=== PATIENT | female | born 1950 | race Caucasian/White ===

== ENCOUNTER 2017-02-25 13:45 | Inpatient (IN) | payer OTHER ==
[~2017-02-25] VITALS: Ht 165.1 cm; Wt 62.4 kg
[2017-02-25 14:22] LABS: HEMATOCRIT 35.3 % (34.6-47.8); HEMOGLOBIN 11.6 g/dL (11.7-16.4); WHITE BLOOD COUNT 13.7 x10^3/uL (3.4-10)
[2017-02-25] MEDS ORDERED: SODIUM CHLORIDE FLUSH 10ML SYR IVF ONE (14:30)
[2017-02-25 14:31] LABS: ASPARTATE AMINO TRANSFERASE 11 U/L (15-37); BLOOD UREA NITROGEN 23 mg/dL (7-18)
[2017-02-25 14:36] LABS: IS PT STATUS REG ER OR PRE ER? YES
[2017-02-25] MEDS ORDERED: SODIUM CHLORIDE 0.9% 1,000ML IVBOLUS ONE (15:00)
[2017-02-25] MEDS ORDERED: OMNIPAQUE 350 MG/ML, 100ML BOTTLE ONE (16:35)
[2017-02-25] MEDS ORDERED: CEFTRIAXONE PMX 1GM/50ML 50 ML ONE (18:46)
[2017-02-25] MEDS ORDERED: CEFTRIAXONE PMX 1GM/50ML 50 ML IVPB ONE (19:00)
[2017-02-25] MEDS ORDERED: PROMETHAZINE 25 MG/ML, 1ML IM PRN (20:00)
[2017-02-25] MEDS ORDERED: ONDANSETRON 2MG/ML, 2ML IVPush PRN (20:00)
[2017-02-25] MEDS ORDERED: morphine SULFATE 10 MG/ML, 1ML IVPush PRN (20:00)
[2017-02-25] MEDS ORDERED: DOCUSATE 100 MG CAPSULE PO PRN (20:00)
[2017-02-25] MEDS ORDERED: POLYETHYLENE GLYCOL 17 GM PACKET PO PRN (20:00)
[2017-02-25] MEDS ORDERED: ACETAMINOPHEN 325 MG TABLET PO PRN (20:00)
[2017-02-25] MEDS ORDERED: CEFTRIAXONE PMX 1GM/50ML 50 ML IV SCH (20:00)
[2017-02-25] MEDS ORDERED: METRONIDAZOLE PMX 500MG/100ML 100 ML ONE (20:18)
[2017-02-25] MEDS: SODIUM CHLORIDE 0.9% 1,000 ML IV SCH (20:24)
[2017-02-25] MEDS: METRONIDAZOLE PMX 500MG/100ML 100 ML IV SCH (20:25)
[2017-02-25 21:00] VITALS: BP 102/66
[2017-02-25 23:08] VITALS: BP 102/66
[2017-02-25] MEDS: HYDROcodone/APAP 5/325 TABLET PO PRN (23:33)
[2017-02-26 01:40] VITALS: BP 120/75
[2017-02-26] MEDS ORDERED: HYDR-3240 PO (03:25)
[2017-02-26] MEDS: METRONIDAZOLE PMX 500MG/100ML 100 ML IV SCH ×3 (04:09→20:38)
[2017-02-26 04:54] LABS: HEMOGLOBIN 9.3 g/dL (11.7-16.4); WHITE BLOOD COUNT 9.3 x10^3/uL (3.4-10)
[2017-02-26 05:01] LABS: ASPARTATE AMINO TRANSFERASE 5 U/L (15-37); BLOOD UREA NITROGEN 18 mg/dL (7-18)
[2017-02-26] MEDS ORDERED: LIDOCAINE 1%, 20ML ONE ×2 (07:40→14:02)
[2017-02-26] MEDS ORDERED: MIDAZOLAM 1 MG/ML, 5ML ONE ×2 (07:57→14:00)
[2017-02-26] MEDS ORDERED: FENTANYL PF 100 MCG/2ML ONE ×4 (07:57→14:00)
[2017-02-26] MEDS ORDERED: NALOXONE 1 MG/ML, 2ML ONE (07:57)
[2017-02-26] MEDS ORDERED: FLUMAZENIL 0.1 MG/1 ML, 5ML ONE (07:57)
[2017-02-26] MEDS ORDERED: MIDAZOLAM 1 MG/ML, 2ML ONE (08:00)
[2017-02-26] MEDS ORDERED: PROPOFOL 10 MG/ML, 20ML ONE (08:01)
[2017-02-26] MEDS ORDERED: ONDANSETRON 2MG/ML, 2ML ONE (08:01)
[2017-02-26] MEDS ORDERED: DEXAMETHASONE 4 MG/ML, 1ML ONE ×2 (08:01)
[2017-02-26 08:30] VITALS: BP 113/65
[2017-02-26] MEDS ORDERED: hydrALAzine 20 MG/ML, 1ML IV PRN (08:30)
[2017-02-26] MEDS ORDERED: OXYcodone 5 MG/5 ML ORAL.SOL UDC PO PRN (08:30)
[2017-02-26] MEDS ORDERED: LABETALOL 5MG/ML, 20ML IV PRN (08:30)
[2017-02-26] MEDS ORDERED: ACETAMINOPHEN 325 MG TABLET PO PRN (08:30)
[2017-02-26] MEDS ORDERED: FENTANYL PF 100 MCG/2ML IV PRN (08:30)
[2017-02-26] MEDS ORDERED: MEPERIDINE/PF 25MG/0.5ML IVPush PRN (08:30)
[2017-02-26] MEDS ORDERED: HYDROmorphone 1 MG/ML, 1ML IV PRN (08:30)
[2017-02-26] MEDS ORDERED: PROMETHAZINE 25 MG/ML, 1ML IV PRN (08:30)
[2017-02-26] MEDS ORDERED: ONDANSETRON 2MG/ML, 2ML IVPush PRN (08:30)
[2017-02-26] MEDS ORDERED: PHENYLEPHRINE 10 MG/ML ONE (08:42)
[2017-02-26] MEDS: SENNA/DOCUSATE TABLET PO SCH (09:00)
[2017-02-26 14:30] VITALS: BP 116/72
[2017-02-26] MEDS: HYDROcodone/APAP 5/325 TABLET PO PRN ×2 (15:22→20:14)
[2017-02-26] MEDS: SODIUM CHLORIDE 0.9% 1,000 ML IV SCH (18:37)
[2017-02-26 18:53] VITALS: BP 112/67
[2017-02-26] MEDS ORDERED: CEFTRIAXONE 1,000 MG in DEXTROSE 5% 50 ML IV SCH (20:00)
[2017-02-27 01:49] VITALS: BP 139/56
[2017-02-27] MEDS: METRONIDAZOLE PMX 500MG/100ML 100 ML IV SCH ×3 (04:13→20:44)
[2017-02-27 07:26] VITALS: BP 108/67
[2017-02-27] MEDS: SENNA/DOCUSATE TABLET PO SCH (10:38)
[2017-02-27 13:41] LABS: BLOOD UREA NITROGEN 19 mg/dL (7-18)
[2017-02-27 13:44] LABS: HEMATOCRIT 27.6 % (34.6-47.8); HEMOGLOBIN 8.6 g/dL (11.7-16.4); WHITE BLOOD COUNT 11.2 x10^3/uL (3.4-10)
[2017-02-27 13:52] VITALS: BP 122/73
[2017-02-27] MEDS: FLUCONAZOLE 200 MG/100 ML 100 ML IV SCH (14:21)
[2017-02-27] MEDS: CEFTAZIDIME PMX 2 GM/50ML 50 ML IV SCH ×2 (16:51→23:46)
[2017-02-27 19:00] VITALS: BP 117/74
[2017-02-27] MEDS ORDERED: morphine SULFATE 10 MG/ML, 1ML IVPush PRN (19:30)
[2017-02-27] MEDS ORDERED: POLYETHYLENE GLYCOL 17 GM PACKET PO PRN (19:30)
[2017-02-27] MEDS ORDERED: DOCUSATE 100 MG CAPSULE PO PRN (19:30)
[2017-02-27] MEDS ORDERED: PROMETHAZINE 25 MG/ML, 1ML IM PRN (19:30)
[2017-02-27] MEDS ORDERED: ONDANSETRON 2MG/ML, 2ML IVPush PRN (19:30)
[2017-02-27] MEDS: HYDROcodone/APAP 5/325 TABLET PO PRN (23:46)
[2017-02-28 03:44] VITALS: BP 125/81
[2017-02-28 04:49] LABS: HEMATOCRIT 26.7 % (34.6-47.8); HEMOGLOBIN 8.6 g/dL (11.7-16.4); WHITE BLOOD COUNT 9.2 x10^3/uL (3.4-10)
[2017-02-28] MEDS: METRONIDAZOLE PMX 500MG/100ML 100 ML IV SCH ×3 (04:54→21:49)
[2017-02-28 05:03] LABS: BLOOD UREA NITROGEN 19 mg/dL (7-18)
[2017-02-28 08:34] VITALS: BP 117/65
[2017-02-28] MEDS: SENNA/DOCUSATE TABLET PO SCH (08:43)
[2017-02-28] MEDS: CEFTAZIDIME PMX 2 GM/50ML 50 ML IV SCH ×2 (10:26→16:38)
[2017-02-28] MEDS ORDERED: POTASSIUM PHOSPHATE 22 MEQ in SODIUM CHLORIDE 0.9% 500 ML IV ONE (10:30)
[2017-02-28] MEDS: HYDROcodone/APAP 5/325 TABLET PO PRN ×2 (11:28→21:49)
[2017-02-28] MEDS: HEPARIN 5,000 UNITS/ML, 1ML SQ SCH ×2 (11:36→20:11)
[2017-02-28] MEDS: FLUCONAZOLE 200 MG/100 ML 100 ML IV SCH (14:04)
[2017-02-28 14:15] VITALS: BP 107/63
[2017-02-28] MEDS: D5%-0.9% NACL+KCL 20MEQ 1,000 ML IV SCH (16:38)
[2017-02-28 21:30] VITALS: BP 111/66
[2017-03-01 01:10] VITALS: BP 121/78
[2017-03-01] MEDS: CEFTAZIDIME PMX 2 GM/50ML 50 ML IV SCH ×3 (01:16→17:59)
[2017-03-01] MEDS: HEPARIN 5,000 UNITS/ML, 1ML SQ SCH ×3 (05:21→20:47)
[2017-03-01] MEDS: METRONIDAZOLE PMX 500MG/100ML 100 ML IV SCH ×3 (05:21→20:47)
[2017-03-01 05:25] LABS: HEMATOCRIT 26.8 % (34.6-47.8); HEMOGLOBIN 8.5 g/dL (11.7-16.4); WHITE BLOOD COUNT 6.7 x10^3/uL (3.4-10)
[2017-03-01 05:28] LABS: BLOOD UREA NITROGEN 10 mg/dL (7-18)
[2017-03-01 07:01] VITALS: BP 144/83
[2017-03-01] MEDS: SENNA/DOCUSATE TABLET PO SCH (07:56)
[2017-03-01] MEDS: HYDROcodone/APAP 5/325 TABLET PO PRN ×3 (07:57→20:47)
[2017-03-01] MEDS: D5%-0.9% NACL+KCL 20MEQ 1,000 ML IV SCH (09:29)
[2017-03-01 15:08] VITALS: BP 111/64
[2017-03-01] MEDS: FLUCONAZOLE 200 MG/100 ML 100 ML IV SCH (15:10)
[2017-03-01 18:54] VITALS: BP 119/72
[2017-03-02] MEDS: CEFTAZIDIME PMX 2 GM/50ML 50 ML IV SCH ×3 (01:13→17:22)
[2017-03-02 03:04] VITALS: BP 138/84
[2017-03-02] MEDS: HEPARIN 5,000 UNITS/ML, 1ML SQ SCH ×3 (05:12→20:20)
[2017-03-02] MEDS: METRONIDAZOLE PMX 500MG/100ML 100 ML IV SCH ×3 (05:13→21:46)
[2017-03-02 05:52] LABS: BLOOD UREA NITROGEN 6 mg/dL (7-18)
[2017-03-02 07:06] VITALS: BP 130/83
[2017-03-02] MEDS ORDERED: POTASSIUM PHOSPHATE 22 MEQ in SODIUM CHLORIDE 0.9% 500 ML IV ONE (08:30)
[2017-03-02] MEDS ORDERED: POTASSIUM PHOS 4.4 MEQ/ML IV ONE (08:30)
[2017-03-02] MEDS: HYDROcodone/APAP 5/325 TABLET PO PRN ×3 (09:01→23:05)
[2017-03-02] MEDS: SENNA/DOCUSATE TABLET PO SCH (09:01)
[2017-03-02] MEDS: FLUCONAZOLE 200 MG/100 ML 100 ML IV SCH ×2 (12:47→14:09)
[2017-03-02 14:07] VITALS: BP 127/82
[2017-03-02 20:47] VITALS: BP 127/80
[2017-03-03] MEDS: CEFTAZIDIME PMX 2 GM/50ML 50 ML IV SCH ×3 (01:19→16:22)
[2017-03-03 01:25] VITALS: BP 126/84
[2017-03-03] MEDS: HEPARIN 5,000 UNITS/ML, 1ML SQ SCH ×3 (05:15→19:33)
[2017-03-03] MEDS: METRONIDAZOLE PMX 500MG/100ML 100 ML IV SCH ×3 (05:15→19:33)
[2017-03-03 07:15] VITALS: BP 138/82
[2017-03-03] MEDS: SENNA/DOCUSATE TABLET PO SCH (08:34)
[2017-03-03] MEDS: HYDROcodone/APAP 5/325 TABLET PO PRN ×2 (10:21→19:33)
[2017-03-03] MEDS: FLUCONAZOLE 200 MG/100 ML 100 ML IV SCH (12:27)
[2017-03-03 15:16] VITALS: BP 132/84
[2017-03-03 19:18] VITALS: BP 143/85
[2017-03-04] MEDS: CEFTAZIDIME PMX 2 GM/50ML 50 ML IV SCH ×3 (01:57→16:39)
[2017-03-04 02:14] VITALS: BP 131/81
[2017-03-04] MEDS: METRONIDAZOLE PMX 500MG/100ML 100 ML IV SCH (04:49)
[2017-03-04] MEDS: HEPARIN 5,000 UNITS/ML, 1ML SQ SCH ×3 (04:49→19:55)
[2017-03-04] MEDS: ACETAMINOPHEN 325 MG TABLET PO PRN (04:51)
[2017-03-04 08:30] VITALS: BP 125/77
[2017-03-04] MEDS: SENNA/DOCUSATE TABLET PO SCH (09:00)
[2017-03-04] MEDS: FLUCONAZOLE 200 MG/100 ML 100 ML IV SCH (12:14)
[2017-03-04] MEDS: metroNIDAZOLE 500 MG TABLET PO SCH ×2 (13:19→19:54)
[2017-03-04] MEDS: FLUCONAZOLE 400 MG/200 ML 200 ML IV SCH (13:19)
[2017-03-04] MEDS: HYDROcodone/APAP 5/325 TABLET PO PRN ×3 (13:40→21:02)
[2017-03-04 14:07] VITALS: BP 126/86
[2017-03-04] MEDS ORDERED: POLYETHYLENE GLYCOL 17 GM PACKET NG ONE (15:30)
[2017-03-04 19:24] VITALS: BP 114/75
[2017-03-05] MEDS: CEFTAZIDIME PMX 2 GM/50ML 50 ML IV SCH ×2 (00:59→09:20)
[2017-03-05 01:03] VITALS: BP 136/83
[2017-03-05] MEDS: metroNIDAZOLE 500 MG TABLET PO SCH ×2 (04:15→15:55)
[2017-03-05] MEDS: HEPARIN 5,000 UNITS/ML, 1ML SQ SCH ×3 (04:16→21:22)
[2017-03-05 04:50] LABS: HEMATOCRIT 31.6 % (34.6-47.8); HEMOGLOBIN 9.9 g/dL (11.7-16.4); WHITE BLOOD COUNT 8.1 x10^3/uL (3.4-10)
[2017-03-05 04:51] LABS: BLOOD UREA NITROGEN 6 mg/dL (7-18)
[2017-03-05 04:54] LABS: ASPARTATE AMINO TRANSFERASE 7 U/L (15-37)
[2017-03-05 07:16] VITALS: BP 125/79
[2017-03-05] MEDS: SENNA/DOCUSATE TABLET PO SCH (09:20)
[2017-03-05] MEDS ORDERED: SODIUM PHOSPHATE 4 MEQ/ML IV SCH (12:00)
[2017-03-05] MEDS ORDERED: SODIUM PHOSPHATE 40 MEQ in SODIUM CHLORIDE 0.9% 500 ML IV ONE (13:00)
[2017-03-05 14:29] VITALS: BP 125/82
[2017-03-05] MEDS: FLUCONAZOLE 400 MG/200 ML 200 ML IV SCH (15:55)
[2017-03-05] MEDS: ACETAMINOPHEN 325 MG TABLET PO PRN (16:03)
[2017-03-05] MEDS ORDERED: MEROPENEM 500 MG in SODIUM CHLORIDE 0.9% 100 ML IV SCH (18:30)
[2017-03-05 20:07] VITALS: BP 126/78
[2017-03-05] MEDS: MEROPENEM 500 MG in SODIUM CHLORIDE 0.9% 50 ML IV SCH ×2 (21:21→23:05)
[2017-03-05] MEDS: HYDROcodone/APAP 5/325 TABLET PO PRN (21:22)
[2017-03-06 02:58] VITALS: BP 130/82
[2017-03-06] MEDS: MEROPENEM 500 MG in SODIUM CHLORIDE 0.9% 50 ML IV SCH ×4 (04:23→22:44)
[2017-03-06] MEDS: HEPARIN 5,000 UNITS/ML, 1ML SQ SCH ×3 (04:24→22:43)
[2017-03-06] MEDS: HYDROcodone/APAP 5/325 TABLET PO PRN ×2 (04:33→16:54)
[2017-03-06 05:23] LABS: HEMATOCRIT 30.1 % (34.6-47.8); HEMOGLOBIN 9.6 g/dL (11.7-16.4)
[2017-03-06 05:47] LABS: ASPARTATE AMINO TRANSFERASE 10 U/L (15-37); BLOOD UREA NITROGEN 7 mg/dL (7-18)
[2017-03-06 08:00] VITALS: BP 130/85
[2017-03-06] MEDS: SENNA/DOCUSATE TABLET PO SCH ×2 (08:48→11:21)
[2017-03-06] MEDS: FLUCONAZOLE 400 MG/200 ML 200 ML IV SCH (14:37)
[2017-03-06 14:58] VITALS: BP 135/82
[2017-03-06] MEDS ORDERED: DOCUSATE 100 MG CAPSULE PO PRN (18:30)
[2017-03-06] MEDS ORDERED: POLYETHYLENE GLYCOL 17 GM PACKET PO PRN (18:30)
[2017-03-06] MEDS ORDERED: ONDANSETRON 2MG/ML, 2ML IVPush PRN (18:30)
[2017-03-06] MEDS ORDERED: ACETAMINOPHEN 325 MG TABLET PO PRN (18:30)
[2017-03-06 20:57] VITALS: BP 150/84
[2017-03-07] MEDS: HYDROcodone/APAP 5/325 TABLET PO PRN ×3 (00:16→22:27)
[2017-03-07 03:52] VITALS: BP 132/78
[2017-03-07] MEDS: MEROPENEM 500 MG in SODIUM CHLORIDE 0.9% 50 ML IV SCH ×4 (05:00→23:23)
[2017-03-07] MEDS: HEPARIN 5,000 UNITS/ML, 1ML SQ SCH ×3 (05:56→23:23)
[2017-03-07 07:49] VITALS: BP 137/84
[2017-03-07] MEDS: SENNA/DOCUSATE TABLET PO SCH (07:53)
[2017-03-07] MEDS: FLUCONAZOLE 400 MG/200 ML 200 ML IV SCH (11:08)
[2017-03-07 13:47] VITALS: BP 113/78
[2017-03-07 19:34] VITALS: BP 119/77
[2017-03-08 01:33] VITALS: BP 134/83
[2017-03-08] MEDS: MEROPENEM 500 MG in SODIUM CHLORIDE 0.9% 50 ML IV SCH ×4 (05:06→22:53)
[2017-03-08 07:32] VITALS: BP 140/82
[2017-03-08] MEDS: SENNA/DOCUSATE TABLET PO SCH (09:19)
[2017-03-08] MEDS: HEPARIN 5,000 UNITS/ML, 1ML SQ SCH ×3 (09:19→22:55)
[2017-03-08] MEDS: HYDROcodone/APAP 5/325 TABLET PO PRN ×2 (09:20→20:13)
[2017-03-08] MEDS: FLUCONAZOLE 400 MG/200 ML 200 ML IV SCH (13:08)
[2017-03-08 14:23] VITALS: BP 100/65
[2017-03-08 18:29] VITALS: BP 133/85
[2017-03-09 00:50] VITALS: BP 130/84
[2017-03-09] MEDS: HEPARIN 5,000 UNITS/ML, 1ML SQ SCH (03:49)
[2017-03-09] MEDS: MEROPENEM 500 MG in SODIUM CHLORIDE 0.9% 50 ML IV SCH (04:26)
[2017-03-09] MEDS: SENNA/DOCUSATE TABLET PO SCH (07:38)
[2017-03-09] MEDS: HYDROcodone/APAP 5/325 TABLET PO PRN (07:45)
[2017-03-09 09:19] VITALS: BP 129/84
[2017-03-09] MEDS ORDERED: MEROPENEM 500 MG in SODIUM CHLORIDE 0.9% 50 ML IV SCH (11:00)
[2017-03-09] MEDS ORDERED: MEROPENEM 500 MG in SODIUM CHLORIDE 0.9% 100 ML IV SCH (11:00)
[2017-03-09] MEDS ORDERED: FLUC200T PO (11:10)
[2017-03-09] MEDS ORDERED: LEVO500T8 PO (11:15)
[2017-03-09] MEDS: FLUCONAZOLE 400 MG/200 ML 200 ML IV SCH (12:30)
== END 2017-03-09 12:35 | disposition hospice, home (50) | DRG 871 ==
LOC: ED 18:07 → SUATTDRO 19:36 → EDIP 19:49 → 3NW 21:28
PROVIDERS: ADMIT Family Medicine; ATTEND Family Medicine
PROC: 0TJ Urinary System, Inspection (ICD-10-PCS; 2017-02-26)
PROC: 0W9J30Z Drainage of Pelvic Cavity with Drainage Device, Percutaneous Approach (ICD-10-PCS; principal; 2017-02-26 08:30)
DX: A41.9 Sepsis, unspecified organism (principal); E43 Unspecified severe protein-calorie malnutrition; N17.0 Acute kidney failure with tubular necrosis; K65.1 Peritoneal abscess; C52 Malignant neoplasm of vagina; E86.0 Dehydration; N12 Tubulo-interstitial nephritis, not specified as acute or chronic; N30.90 Cystitis, unspecified without hematuria; F17.200 Nicotine dependence, unspecified, uncomplicated; Z68.22 Body mass index [BMI] 22.0-22.9, adult; G89.29 Other chronic pain; N73.9 Female pelvic inflammatory disease, unspecified; Z51.5 Encounter for palliative care; Z85.048 Personal history of other malignant neoplasm of rectum, rectosigmoid junction, and anus; Z92.21 Personal history of antineoplastic chemotherapy; Z92.3 Personal history of irradiation; Z85.44 Personal history of malignant neoplasm of other female genital organs; Z93.6 Other artificial openings of urinary tract status; Z88.0 Allergy status to penicillin
CPT/HCPCS: 36415; 49405; 71010; 71275; 74000; 74176; 74177; 75989; 80048; 80053; 81001; 82306; 82570; 82607; 83605; 83735; 83880; 84100; 84484; 85025; 85379; 85651; 87040; 87070; 87075; 87077; 87086; 87106; 87186; 87205; 93005; 96361; 96365; 96366; 96375; 99156; 99157; J0696; J1100; J1450; J1644; J2185; J2250; J2405; J2704; J3010; J3490; Q9967; C1729; C1769; J0713; J2310; J2370; J3480; J7030; J7040